=== PATIENT | female | born 2000 | race Caucasian/White ===

== ENCOUNTER 2021-03-13 11:17 | Emergency (ER) | payer MEDICAID, SELFPAY ==
[2021-03-13 11:19] VITALS: BP 121/81; PULSE 93; TEMP 36.5; O2SAT 100
[2021-03-13] MEDS: Tetracaine 0.5% 4 ML BTL (11:36)
[2021-03-13] MEDS: Fluorescein STRIPS 100/BOX 1 MG (11:36)
--- NOTE | 2021-03-13 11:41 | ED.GENADUL_ITS ---
Discharge Plan Disposition Patient Disposition: HOME Condition: Improving Discharge Details Clinical Impression: Contact lens stuck ED Provider: Melissa Noe Home Meds and New Rx's Prescriptions: No Action levonorgestrel-ethinyl estrad [Aubra] 0.1-20 mg-mcg Tablet 1 tab PO DAILY RF: 0 albuterol 90 mcg/actuation Aerosol 90 mcg INHALATION Q4H PRNRF: 0 epinephrine [Epi E-Z Pen] 0.3 mg/0.3 mL Auto-Injector 0.3 mg IM Q5-15M PRNRF: 0 Discharge Instructions Instructions: Eye Foreign Body (ED) Additional Instructions: The contact was successfully removed from your left eye today. There is no evidence of corneal abrasion post removal. Use saline drops as needed. Follow up with primary care provider in 3-5 days. Return to ED sooner if any worsening or concerns. Increase oral fluids. Please take Tylenol or Ibuprofen with food every 4-6 hours as needed for pain and swelling. Medical Decision Making Soft contact to left eye visualized and removed as noted in procedure note above. There is no corneal abrasion noted after removal nor any corneal injection. Patient tolerated well reports improvement status post removal foreign body. Status post removal fluorescein strip used with Tolbert lamp to rule out corneal abrasion, no uptake of dye noted. HPI General Mode of arrival: ambulatory . Date/Time Provider Initiated Documentation: 03/13/21 11:30 . Limitations to Documentation: no limitations . Information obtained by: patient and RN notes reviewed . HPI Narrative: 20-year-old female presents the ER with soft contact back and left eye since yesterday. Patient states that she was unable to remove it today. She reports that these are once a day contacts. Denies any discharge, fever, redness or any other complaints. Related Data Home Medications Medication Instructions Recorded Confirmed albuterol 90 mcg INHALATION Q4H PRN 03/13/21 03/13/21 epinephrine [Epi E-Z Pen] 0.3 mg IM Q5-15M PRN 03/13/21 03/13/21 levonorgestrel-ethinyl estrad 1 tab PO DAILY 03/13/21 03/13/21 [Aubra] Allergies Allergy/AdvReac Type Severity Reaction Status Date / Time apple Allergy Unverified 03/13/21 11:23 cat dander AdvReac Unverified 03/13/21 11:23 General Stated Complaint: EyeProblem TAWANDA: 4 Review of Systems All systems reviewed & are unremarkable except as noted in HPI and below Eyes Eyes: Denies eye discharge and Reports other (Contact lens in left eye x 24 hours) PFSH Social History Smoking/Tobacco Use Status: Never Smoking risk assessment performed?: Yes Alcohol Intake: never Drug use: Never Substance use type: does not use Do you feel safe at home: Yes Do you feel safe in your relationship?: Yes Exam Eyes Alignment and Position: alignment normal and position normal Periorbital: periorbital findings normal Eyelids: eyelids normal Conjunctivae: conjunctivae normal Sclera: sclerae normal Cornea: other (Contact lens visualized left eye) Pupils: PERRL and normal by confrontation EOM: EOM intact bilaterally Course Vital Signs Vital signs: Vital Signs Temperature 36.5 C 03/13/21 11:19 Pulse 93 H 03/13/21 11:19 Blood Pressure 121/81 03/13/21 11:19 Pulse Oximetry 100 03/13/21 11:19 Temperature 36.5 C 03/13/21 11:19 Temperature Source Temporal Artery Scan 03/13/21 11:19 Pulse 93 H 03/13/21 11:19 Respiratory Effort Non-Labored 03/13/21 11:21 Blood Pressure 121/81 03/13/21 11:19 Blood Pressure Position Sitting 03/13/21 11:19 Pulse Oximetry 100 03/13/21 11:19 Oxygen Delivery Method Room Air 03/13/21 11:19 Oxygen Flow Rate 0 03/13/21 11:19 Pain Level 4 03/13/21 11:19 Procedures FB Removal Eye Time Out performed: Yes Location: eye (L) Topical anesthetic used: tetracaine Foreign body: other (Soft contact) Evidence of corneal penetration: No Technique: irrigation, cotton tip swab and other (Manual removal) Procedure performed under: direct visualization with magnification Post-procedure medication: topical anesthetic Patient tolerated procedure: well and no complications
[2021-03-13] MEDS: Balanced Salt Solution 15 ML BTL (12:09)
== END 2021-03-13 12:17 | disposition home or self-care (01) ==
LOC: ER 12:17
PROVIDERS: Emergency Provider Registered Nurse Emergency
DX: T15.82XA Foreign body in other and multiple parts of external eye, left eye, initial encounter (principal); X58.XXXA Exposure to other specified factors, initial encounter
CPT/HCPCS: 65205

== ENCOUNTER 2021-03-23 20:13 | Emergency (ER) | payer MEDICAID, SELFPAY ==
[2021-03-23 20:26] VITALS: BP 126/69; PULSE 82; RESP 18; TEMP 36.5; O2SAT 98
[2021-03-23 20:26] LABS: Bilirubin Negative (Negative); Blood Negative (Negative); Clarity Clear (Clear); Glucose Negative (Negative); Ketones Negative (Negative); Leukocyte Esterase Negative (Negative); Nitrite Negative (Negative); Specific Gravity >= 1.030 (1.005-1.025); Urobilinogen 0.2 EU/dL (Up TO 0.2); pH 6.5 (5-8)
--- NOTE | 2021-03-23 20:37 | ED.GENADUL_ITS ---
Discharge Plan Disposition Patient Disposition: HOME Condition: Stable Discharge Details Clinical Impression: Abdominal pain Primary Care Provider: Vanita,Local ED Provider: Pernell Rutherford Home Meds and New Rx's Prescriptions: Continued Vitamin B-12 50 mcg Tablet 50 mcg PO DAILY RF: 0 cholecalciferol (vitamin D3) [Vitamin D3] 50 mcg (2,000 unit) Capsule 50 mcg PO DAILY RF: 0 levonorgestrel-ethinyl estrad [Aubra] 0.1-20 mg-mcg Tablet 1 tab PO DAILY RF: 0 albuterol 90 mcg/actuation Aerosol 90 mcg INHALATION Q4H PRNRF: 0 epinephrine 0.3 mg/0.3 mL Auto-Injector 0.3 mg IM Q5-15M PRNRF: 0 Discharge Instructions Instructions: Abdominal Pain (ED), Biliary Colic (ED) Additional Instructions: Laboratory values here in the ER unremarkable. Vital signs are normal. Your presentation is concerning for gallbladder disease. I am setting you up for a ultrasound tomorrow, please contact the scheduling department first thing in the morning to set this up. After the ultrasound you will return to the ER for the results. As we discussed, bland diet, avoid fatty, fried, greasy foods. [id number] Tylenol and/or Motrin as directed for discomfort. I am also placing you on the care management list to help expedite a local primary care provider. Please watch for new symptoms and return to the ER for any concerns Medical Decision Making 20-year-old female, denies significant past medical history, reports 5-day history of right upper quadrant pain worse with eating. Clinically she appears well, nontoxic, is afebrile. She does have diffuse right upper quadrant discomfort but I would not say a positive Heredia sign. Will obtain CBC, CMP, lipase, urinalysis and . Patient has a Wells score of 0. Differential includes medically to biliary colic, hepatitis, gastritis, peptic ulcer disease, musculoskeletal strain, UTI, pyelonephritis, renal stone, etc. Given her presentation extremely unlikely that this is a presentation of pneumonia, PE, appendicitis, ovarian torsion, etc. Patient was witnessed ambulating steadily to the restroom Laboratory values are benign, unremarkable for emergent process. Discussed laboratory values with patient. I will set her up for an ultrasound tomorrow, she will return to the ER after the ultrasound for results. We will also place her on the care management list to help expedite local primary care follow-up. We discussed bland, nonfatty, fried, greasy foods. We discussed conservative therapy with [id number] medication such as Tylenol and/or Motrin for discomfort. Patient is comfortable with this plan and has no additional questions or concerns. Medical Records Medical records reviewed: Yes I reviewed the patient's medical records. Lab Data Lab results reviewed: Yes I reviewed the patient's lab results. Lab results narrative: Laboratory Tests Range/Units 03/23/21 03/23/21 03/23/21 20:19 20:45 20:45 WBC (4.4-10.8) 10^3/uL 7.49 RBC (3.93-5.22) 10^6/uL 4.48 Hgb (11.2-15.7) g/dL 13.2 Hct (36.0-46.0) % 39.7 MCV (80-95) fL 88.6 MCH (27.0-33.0) pg 29.5 MCHC (32.0-36.0) % 33.2 RDW (11.7-14.6) % 12.5 Plt Count (130-400) 10^3/uL 265 MPV (8.0-11.0) fL 10.4 Immature Gran % 0.3 Neutrophils % 53.1 Lymphocytes % 37.8 Monocytes % 7.9 Eosinophils % 0.5 Basophils % 0.4 Nucleated RBC % % 0 Absolute Neutrophils (1.2-6.7) 10^3/uL 3.98 Absolute Lymphocytes (1.2-3.4) 10^3/uL 2.83 Absolute Monocytes (0.1-0.8) 10^3/uL 0.59 Absolute Eosinophils (0.0-0.7) 10^3/uL 0.04 Absolute Basophils (0.0-0.2) 10^3/uL 0.03 Sodium (136-145) mmol/L 143 Potassium (3.5-5.1) mmol/L 3.5 Chloride (98-107) mmol/L 106 Carbon Dioxide (21.0-32.0) mmol/L 29.0 Anion Gap (3-11) mmol/L 8.0 BUN (7-18) mg/dL 9 Creatinine (0.55-1.02) mg/dL 0.8 Estimated GFR/1.73 m2 (mL/min/1.73m2) >= 60.00 Glucose (74-106) mg/dL 92 Calcium (8.5-10.1) mg/dL 8.7 Total Bilirubin (0.2-1.0) mg/dL 0.3 AST (15-37) U/L 17 ALT (14-59) U/L 22 Alkaline Phosphatase (46-116) U/L 65 Total Protein (6.4-8.2) g/dL 7.5 Albumin (3.4-5.0) g/dL 3.3 L Lipase (73-393) U/L 107 Urine Color (Yellow) Yellow Urine Clarity (Clear) Clear Urine pH (5-8) 6.5 Ur Specific [place] (1.005-1.025) >= 1.030 H Urine Protein (Negative) mg/dL Negative Urine Ketones (Negative) mg/dL Negative Urine Blood (Negative) Negative Urine Nitrite (Negative) Negative Urine Bilirubin (Negative) Negative Urine Urobilinogen (Up TO 0.2) EU/dL 0.2 Ur Leukocyte Esterase (Negative) Negative Urine Glucose (Negative) mg/dL Negative HPI General Mode of arrival: ambulatory . Date/Time Provider Initiated Documentation: 03/23/21 20:15 . Limitations to Documentation: no limitations . Information obtained by: patient . HPI Narrative: This is a 20-year-old female, denies any significant past medical history. She reports that she has been having right upper quadrant pain sharp, stabbing, associated with nausea and worse with eating. She denies recent illness or trauma. She denies fever, chest pain, shortness of breath, radiation of pain into her back, down her flank or into her lower abdomen. She denies dysuria, hematuria, diarrhea, constipation, vaginal bleeding or discharge. Reports slightly decreased appetite. Patient recently moved to this area and does not have a local primary care provider. She has not taken any [id number] medications for her symptoms. She denies any pain or swelling in her legs. She states that she was talking with friends and family, they were concerned about her gallbladder, she does know that her female family members have had issues with gallstones. Related Data Home Medications Medication Instructions Recorded Confirmed albuterol 90 mcg INHALATION Q4H PRN 03/13/21 03/23/21 epinephrine 0.3 mg IM Q5-15M PRN 03/13/21 03/23/21 levonorgestrel-ethinyl estrad 1 tab PO DAILY 03/13/21 03/13/21 [Aubra] Vitamin B-12 50 mcg PO DAILY 03/23/21 03/23/21 cholecalciferol (vitamin D3) 50 mcg PO DAILY 03/23/21 03/23/21 [Vitamin D3] Allergies Allergy/AdvReac Type Severity Reaction Status Date / Time apple Allergy Unverified 03/23/21 20:29 cat dander AdvReac Unverified 03/23/21 20:29 General Stated Complaint: Abd Prob TAWANDA: 3 Review of Systems Constitutional Constitutional: Denies fever(s) Cardiovascular Cardiovascular: Denies chest pain and Denies dyspnea Respiratory Respiratory: Denies cough and Denies dyspnea Gastrointestinal Gastrointestinal: Reports abdominal pain, Denies constipation, Denies diarrhea, Reports nausea and Denies vomiting Genitourinary Genitourinary: Denies abnormal vaginal bleeding, Denies dysuria and Denies vaginal discharge Musculoskeletal Musculoskeletal: Denies back pain Integumentary/Breasts Skin/Breast: Denies rash [facility] Social History Smoking/Tobacco Use Status: Never Smoking risk assessment performed?: Yes Alcohol Intake: never Drug use: Never Substance use type: does not use Do you feel safe at home: Yes Do you feel safe in your relationship?: Yes Exam Const General: cooperative, healthy appearing, comfortable and no acute distress Orientation: alert, awake and oriented x3 HENMT Head: normal to inspection, normocephalic and atraumatic Mouth: moist mucous membranes Throat: posterior oropharynx normal Eyes General: appearance normal, both eyes and all related structures Conjunctivae: conjunctivae normal Neck Neck: normal visual inspection, trachea midline and supple Chest Chest: normal palpation of entire chest wall Resp Effort & Inspection: normal respiratory effort and able to speak in complete sentences Auscultation: clear to auscultation bilaterally Cardio Rate: regular rate Rhythm: regular rhythm GI Inspection: normal to inspection Palpation: soft, not firm, no guarding, no pulsatile masses and tender in the RUQ; not at McBurney's point, Heredia's sign negative and with no rebound tenderness Auscultation: normal bowel sounds Back/Spine/Pelvis Back: No back tenderness Skin General skin exam: no rashes or lesions noted Neuro General: patient alert, patient awake, moves all extremities and no focal motor deficits Cognition: normal cognition Speech: speech normal Gait: normal gait Sensory Exam: no sensory deficits noted Extrem General: normal to inspection, full ROM, capillary refill normal, no pedal edema and no calf tenderness Psych Appearance: grossly normal Mental Status: mental status grossly normal Course Vital Signs Vital signs: Vital Signs Temperature 36.5 C 03/23/21 20:26 Pulse 82 03/23/21 20:26 Respiratory Rate 18 03/23/21 20:26 Blood Pressure 126/69 03/23/21 20:26 Pulse Oximetry 98 03/23/21 20:26 Temperature 36.5 C 03/23/21 20:26 Temperature Source Skin 03/23/21 20:26 Pulse 82 03/23/21 20:26 Respiratory Rate 18 03/23/21 20:26 Respiratory Effort Non-Labored 03/23/21 20:28 Blood Pressure 126/69 03/23/21 20:26 Blood Pressure Position Sitting 03/23/21 20:26 Pulse Oximetry 98 03/23/21 20:26 Oxygen Delivery Method Room Air 03/23/21 20:26 Oxygen Flow Rate 0 03/23/21 20:26 Pain Level 8 03/23/21 20:26 Lab/Test Results Lab/Test Results: Laboratory Tests Range/Units 03/23/21 20:19 Urine Color (Yellow) Yellow Urine Clarity (Clear) Clear Urine pH (5-8) 6.5 Ur Specific [place] (1.005-1.025) >= 1.030 H Urine Protein (Negative) mg/dL Negative Urine Ketones (Negative) mg/dL Negative Urine Blood (Negative) Negative Urine Nitrite (Negative) Negative Urine Bilirubin (Negative) Negative Urine Urobilinogen (Up TO 0.2) EU/dL 0.2 Ur Leukocyte Esterase (Negative) Negative Urine Glucose (Negative) mg/dL Negative POC- Test(urine) Negative
[2021-03-23 20:50] LABS: Abs Immature Grans 0.02 10^3/uL (0.0-0.06); Absolute Basophil Count 0.03 10^3/uL (0.0-0.2); Absolute Eosinophil Count 0.04 10^3/uL (0.0-0.7); Absolute Lymphocyte Count 2.83 10^3/uL (1.2-3.4); Absolute Monocyte Count 0.59 10^3/uL (0.1-0.8); Absolute Neutrophil Count 3.98 10^3/uL (1.2-6.7); Basophils % 0.4; Eosinophils % 0.5; HCT 39.7 % (36.0-46.0); HGB 13.2 g/dL (11.2-15.7); Immature Grans % 0.3; Lymphocytes % 37.8; MCH 29.5 pg (27.0-33.0); MCHC 33.2 % (32.0-36.0); MCV 88.6 fL (80-95); MPV 10.4 fL (8.0-11.0); Monocytes % 7.9; Neutrophils % 53.1; Nucleated RBC 0 %; Platelet Count 265 10^3/uL (130-400); RBC 4.48 10^6/uL (3.93-5.22); RDW 12.5 % (11.7-14.6); WBC 7.49 10^3/uL (4.4-10.8)
[2021-03-23 21:02] LABS: ALT 22 U/L (14-59); AST 17 U/L (15-37); Albumin 3.3 g/dL (3.4-5.0); Alkaline Phosphatase 65 U/L (46-116); BUN 9 mg/dL (7-18); Bilirubin, Total 0.3 mg/dL (0.2-1.0); CREATININE 0.8 mg/dL (0.55-1.02); Calcium 8.7 mg/dL (8.5-10.1); Chloride 106 mmol/L (98-107); Glucose 92 mg/dL (74-106); Lipase 107 U/L (73-393); Potassium 3.5 mmol/L (3.5-5.1); Sodium 143 mmol/L (136-145); Total Protein 7.5 g/dL (6.4-8.2)
--- NOTE | 2021-03-23 21:28 | NUR.NOTE ---
Nursing Note:referal sent to cm to establish pcp
[2021-03-23 21:50] VITALS: BP 108/57; PULSE 90; RESP 18; O2SAT 99
== END 2021-03-23 21:50 | disposition home or self-care (01) ==
PROVIDERS: Emergency Provider Physician Assistant
DX: R10.11 Right upper quadrant pain (principal)
CPT/HCPCS: 36415; 80053; 81025; 83690; 99283; 81003; 85025

== ENCOUNTER 2021-03-24 10:20 | Emergency (ER) | payer MEDICAID, SELFPAY ==
[2021-03-24 10:24] VITALS: BP 103/65; PULSE 86; RESP 18; TEMP 37.2
--- NOTE | 2021-03-24 10:33 | W.ED.GENAD ---
Discharge Plan Disposition Patient Disposition: HOME Condition: Stable Discharge Details Clinical Impression: Encounter to discuss test results Primary Care Provider: VanitaLocal ED Provider: Melissa Noe Home Meds and New Rx's Prescriptions: No Action Vitamin B-12 50 mcg Tablet 50 mcg PO DAILY RF: 0 cholecalciferol (vitamin D3) [Vitamin D3] 50 mcg (2,000 unit) Capsule 50 mcg PO DAILY RF: 0 levonorgestrel-ethinyl estrad [Aubra] 0.1-20 mg-mcg Tablet 1 tab PO DAILY RF: 0 albuterol 90 mcg/actuation Aerosol 90 mcg INHALATION Q4H PRNRF: 0 epinephrine 0.3 mg/0.3 mL Auto-Injector 0.3 mg IM Q5-15M PRNRF: 0 Discharge Instructions Instructions: Abdominal Pain (ED) Additional Instructions: Follow up with primary care provider in 3-5 days. Return to ED sooner if any worsening or concerns. Increase oral fluids. Please take Tylenol or Ibuprofen with food every 4-6 hours as needed for pain and swelling. Take nausea medications as directed. Return for any worsening pain, fever unable to keep medications down. Medical Decision Making 20-year-old female presents to the ER for ultrasound results which she had done this morning. Patient was seen last night in the ER for some abdominal pain nausea vomiting. She reports she is still having some right upper quadrant abdominal pain and she did vomit last night. Ultrasound is negative for any evidence of gallstones or cholecystitis. I will give patient some ondansetron to go. Discussed follow-up care with PCP Exam(s) US ABDOMEN EXAM: US ABDOMEN CLINICAL HISTORY: RUQ PAIN, TECHNIQUE: Ultrasound of complete upper abdomen performed using standard protocol. COMPARISON: No exams were available for comparison FINDINGS: There is no ascites evident. LIVER: There are no hepatic lesions evident nor obvious dilatation of intrahepatic ducts. GALLBLADDER/BILIARY: There are no gallstones. No gallbladder wall edema nor pericholecystic fluid. The common hepatic duct isnot dilated, measuring 2-3mm at the level of fabiola hepatis. PANCREAS: There is no evidence of pancreatic mass nor dilatation of the pancreatic duct. SPLEEN: The spleen is not enlarged and there are no intrasplenic lesions evident. KIDNEYS:Kidneys exhibit normal size with no evidence of solid mass, calculus, nor hydronephrosis. No cortical cysts evident. ABDOMINAL AORTA: There is no evidence of abdominal aortic aneurysm. IVC: Normal diameter where visualized. IMPRESSION: 1. No evidence of cholelithiasis nor dilatation of the biliary tree. 2. No other significant ultrasound findings in the upper abdomen. 3. There is no ascites. Discussed ultrasound results with patient verbalized understanding. Patient did vomit last night I will give her 30 Zofran tablets to go. Discussed home care and strict return instructions, verbalized understanding. This text was generated using Heliatekation system, please disregard any oddities of phrase or misspellings. HPI General Mode of arrival: ambulatory. Date/Time Provider Initiated Documentation: 03/24/21 10:21. Limitations to Documentation: no limitations. Information obtained by: patient. HPI Narrative: 20-year-old female presents to the ER for ultrasound results which she had done this morning. Patient was seen last night in the ER for some abdominal pain nausea vomiting. She reports she is still having some right upper quadrant abdominal pain and she did vomit last night. Ultrasound is negative for any evidence of gallstones or cholecystitis. I will give patient some ondansetron to go. Discussed follow-up care with PCP Related Data Home Medications Medication Instructions Recorded Confirmed albuterol 90 mcg INHALATION Q4H PRN 03/13/21 03/24/21 epinephrine 0.3 mg IM Q5-15M PRN 03/13/21 03/24/21 levonorgestrel-ethinyl estrad 1 tab PO DAILY 03/13/21 03/24/21 [Aubra] Vitamin B-12 50 mcg PO DAILY 03/23/21 03/24/21 cholecalciferol (vitamin D3) 50 mcg PO DAILY 03/23/21 03/24/21 [Vitamin D3] Allergies Allergy/AdvReac Type Severity Reaction Status Date / Time apple Allergy Unverified 03/24/21 10:28 cat dander AdvReac Unverified 03/24/21 10:28 General Stated Complaint: Recheck TAWANDA: 5 Review of Systems All systems reviewed & are unremarkable except as noted in HPI and below Gastrointestinal Gastrointestinal: Reports abdominal pain PFSH Social History Smoking/Tobacco Use Status: Never Smoking risk assessment performed?: Yes Alcohol Intake: never Drug use: Never Substance use type: does not use Do you feel safe at home: Yes Do you feel safe in your relationship?: Yes Exam Narrative Exam Narrative: Constitutional: Alert and oriented x3. Appears stated age. Normal body habitus. Head: Normocephalic, no trauma. Eyes: Pupils PERRLA, Red reflex noted, EOM's intact. Eyelids symmetrical without lesions, discharge, or swelling. ENT: External ear normal to inspection, no mastoid TTP, swelling, or erythema, Nasal turbinates WNL, no nasal discharge. Chest: RRR, Normal S1, S2, distal pulses intact. Resp: No evidence of increased work of breathing Course Vital Signs Vital signs: Vital Signs Temperature 37.2 C 03/24/21 10:24 Pulse 86 03/24/21 10:24 Respiratory Rate 18 03/24/21 10:24 Blood Pressure 103/65 03/24/21 10:24 Temperature 37.2 C 03/24/21 10:24 Temperature Source Oral 03/24/21 10:24 Pulse 86 03/24/21 10:24 Respiratory Rate 18 03/24/21 10:24 Respiratory Effort Non-Labored 03/24/21 10:27 Blood Pressure 103/65 03/24/21 10:24 Blood Pressure Position Sitting 03/24/21 10:24 Oxygen Delivery Method Room Air 03/24/21 10:24 Oxygen Flow Rate 0 03/24/21 10:24 Pain Level 7 03/24/21 10:24
[2021-03-24] MEDS: Ondansetron O.D.T. 4 MG TABEF, 3 TABS/BTL PO (10:56)
--- NOTE | 2021-03-25 11:19 | PDOC.ERCMPRO ---
Care Management Progress Note CM faxed referral to [facility] for PCP attachment per tele-doc protocol assignment, as requested.
== END 2021-03-24 10:57 | disposition home or self-care (01) ==
PROVIDERS: Emergency Provider Registered Nurse Emergency
DX: R10.11 Right upper quadrant pain (principal)

== ENCOUNTER 2021-03-24 11:58 | Outpatient (CLI) | payer MEDICAID, SELFPAY ==
--- NOTE | 2021-03-24 | DI.US_ITS ---
Exam(s) US ABDOMEN EXAM: US ABDOMEN CLINICAL HISTORY: RUQ PAIN, TECHNIQUE: Ultrasound of complete upper abdomen performed using standard protocol. COMPARISON: No exams were available for comparison FINDINGS: There is no ascites evident. LIVER: There are no hepatic lesions evident nor obvious dilatation of intrahepatic ducts. GALLBLADDER/BILIARY: There are no gallstones. No gallbladder wall edema nor pericholecystic fluid. The common hepatic duct isnot dilated, measuring 2-3mm at the level of fabiola hepatis. PANCREAS: There is no evidence of pancreatic mass nor dilatation of the pancreatic duct. SPLEEN: The spleen is not enlarged and there are no intrasplenic lesions evident. KIDNEYS:Kidneys exhibit normal size with no evidence of solid mass, calculus, nor hydronephrosis. No cortical cysts evident. ABDOMINAL AORTA: There is no evidence of abdominal aortic aneurysm. IVC: Normal diameter where visualized. IMPRESSION: 1. No evidence of cholelithiasis nor dilatation of the biliary tree. 2. No other significant ultrasound findings in the upper abdomen. 3. There is no ascites. DATA REPOSITORY:
== END 2021-03-24 12:18 ==
PROVIDERS: Visit Provider Physician Assistant
DX: R10.11 Right upper quadrant pain (principal)
CPT/HCPCS: 76700